=== PATIENT | male | born 1945 | race Caucasian/White ===

== ENCOUNTER 2017-03-07 07:23 | Emergency (ER) | payer OTHER ==
[~2017-03-07] VITALS: Ht 175.3 cm; Wt 93.4 kg
[2017-03-07 08:29] LABS: HEMATOCRIT 46.6 % (38.0-50.0); MCH 30.5 PG (29.0-34.0); MCHC 34.8 G/DL (30.0-36.0); MCV 87.6 FL (86-99); MEAN PLAT.VOLUME 9.4 uM^3 (9.0-12.4); PLATELET COUNT 136 K/uL (156-360); RBC DIS.WIDTH-CV 12.9 % (11.8-14.6); RBC DIS.WIDTH-SD 41.1 % (39-53); RED BLOOD COUNT 5.32 M/uL (4.00-5.50); WHITE BLOOD COUNT 4.6 K/uL (4.1-10.2)
[2017-03-07 08:33] LABS: PROTHROMBIN TIME 11.2 SEC (10.2-12.9)
[2017-03-07 08:36] LABS: PTT 30.3 SEC (25-37)
[2017-03-07 08:37] LABS: CHLORIDE 103 mEq/L (99-109); POTASSIUM 4.2 mEq/L (3.7-5.4); SODIUM 135 mEq/L (136-147)
[2017-03-07 08:39] LABS: GLUCOSE 221 mg/dL (70-99)
[2017-03-07 08:40] LABS: ANION GAP 9 MEQ/L (2-14)
[2017-03-07 08:42] LABS: GFR ESTIMATE (CALCULATED) 43 mL/min/
[2017-03-07 08:43] LABS: UREA NITROGEN (BUN) 32 mg/dL (9-23)
[2017-03-07 08:56] LABS: ADD MIUA? YES; BILIRUBIN NEGATIVE; BLOOD LARGE; GLUCOSE (STRIP) >=500; KETONES NEGATIVE; LEUKOCYTES NEGATIVE; NITRITE NEGATIVE; PROTEIN (STRIP) 100; SPECIFIC GRAVITY 1.015 (1.000-1.030); UROBILINOGEN 0.2 MG/DL (0.2-1.0)
[2017-03-07 08:57] LABS: COLOR RED ((YELLOW))
[2017-03-07 09:11] LABS: BACTERIA NONE SEEN /HPF; EPITHELIAL CELLS NONE SEEN /HPF; MUCUS NONE SEEN /LPF; RED BLOOD CELLS TNTC /HPF (0-5); UCUL ADDED? YES
[2017-03-07 10:18] VITALS: BP 126/85
== END 2017-03-07 10:18 | disposition home or self-care (01) ==
LOC: EME 07:23
PROVIDERS: Nurse Practitioner Family
DX: R31.9 Hematuria, unspecified (principal); E11.65 Type 2 diabetes mellitus with hyperglycemia; E11.22 Type 2 diabetes mellitus with diabetic chronic kidney disease; N18.9 Chronic kidney disease, unspecified; R33.9 Retention of urine, unspecified; Z88.0 Allergy status to penicillin
CPT/HCPCS: 80048; 81003; 85027; 85610; 85730; 87086; 99281; 99282